=== PATIENT | male | born 1980 | race Two or more races ===

== ENCOUNTER → 2019-10-31 | Outpatient (CLI) | payer BC ==
--- NOTE | 2019-10-31 13:07 | Diagnostic Imaging Report ---
Indication: Cough Technique: 2 views of the chest Comparison: None Findings: Lungs and pleural spaces are clear. The heart size is normal. The bones are unremarkable. Impression: Negative
== END | disposition home or self-care (01) ==
LOC: RAD 12:20
DX: Z01.818 Encounter for other preprocedural examination (principal); Z01.812 Encounter for preprocedural laboratory examination; R05 Cough
CPT/HCPCS: 71046